=== PATIENT | female | born 1955 | race Caucasian/White ===

== ENCOUNTER 2024-11-07 09:28 | Outpatient (CLI) | payer MEDICARE | END 2024-11-07 09:29 | disposition home or self-care (01) | LOC: CSHSLEEP 09:28 | PROVIDERS: ATTEND Family Medicine | DX: G47.33 Obstructive sleep apnea (adult) (pediatric) (principal); R53.83 Other fatigue; R09.02 Hypoxemia | CPT/HCPCS: 95800 ==